=== PATIENT | female | born 1955 | race Hispanic/Latino ===

== ENCOUNTER → 2018-01-05 | Outpatient (CLI) | payer BC ==
[~2018-01-05] MED LIST: AEC81 PO; CHOL100044 PO; ENAL5TAB PO; FISH1CAP49 PO; MULT-1192 PO; PRAV20TA4 PO
== END | disposition home or self-care (01) ==
LOC: RAH 08:34
PROVIDERS: ATTEND Internal Medicine
DX: Z12.31 Encounter for screening mammogram for malignant neoplasm of breast (principal)
CPT/HCPCS: 77067

== ENCOUNTER → 2019-01-07 | Outpatient (CLI) | payer BC | END | disposition home or self-care (01) | LOC: RAH 15:49 | PROVIDERS: ATTEND Internal Medicine | DX: Z12.31 Encounter for screening mammogram for malignant neoplasm of breast (principal) | CPT/HCPCS: 77067 ==

== ENCOUNTER → 2019-04-01 | Outpatient (CLI) | payer BC | END | disposition home or self-care (01) | LOC: RAH 16:01 | PROVIDERS: ATTEND Internal Medicine | DX: M16.11 Unilateral primary osteoarthritis, right hip (principal); M47.816 Spondylosis without myelopathy or radiculopathy, lumbar region | CPT/HCPCS: 73502 ==

== ENCOUNTER → 2020-08-06 | Outpatient (CLI) | payer MEDICARE ==
[~2020-08-06] MED LIST changes: -ENAL5TAB PO; +ENAL5TAB17 PO
== END | disposition home or self-care (01) ==
LOC: RAH 12:54
PROVIDERS: ATTEND Physical Medicine & Rehabilitation
DX: M47.26 Other spondylosis with radiculopathy, lumbar region (principal); M43.16 Spondylolisthesis, lumbar region; M25.562 Pain in left knee
CPT/HCPCS: 72114; 73562

== ENCOUNTER → 2021-01-28 | Outpatient (CLI) | payer MEDICARE | END | disposition home or self-care (01) | LOC: RAH 13:12 | PROVIDERS: ATTEND Physical Medicine & Rehabilitation | DX: M16.11 Unilateral primary osteoarthritis, right hip (principal) | CPT/HCPCS: 73502 ==

== ENCOUNTER → 2021-02-01 | Outpatient (CLI) | payer MEDICARE | END | disposition home or self-care (01) | LOC: RAH 12:36 | PROVIDERS: ATTEND Internal Medicine | DX: Z12.31 Encounter for screening mammogram for malignant neoplasm of breast (principal) | CPT/HCPCS: 77067 ==

== ENCOUNTER 2021-08-13 05:48 | Day surgery (SDC) | payer MEDICARE ==
[2021-08-12 09:34] LABS: BASOPHILS % (AUTO) 0.6 % (0.0-5.0); EOSINOPHILS % (AUTO) 1.3 % (0.0-8.0); HEMATOCRIT 42.8 % (36-48); LYMPHOCYTES % (AUTO) 23.8 % (21.0-51.0); MEAN CORPUSCULAR HEMOGLOBIN 33.6 pg (27.0-33.0); MEAN CORPUSCULAR HGB CONC 33.2 g/dL (32.0-36.0); MEAN CORPUSCULAR VOLUME 101.4 fL (79-99); NEUTROPHILS % (AUTO) 65.1 % (40.0-77.0); PLATELET COUNT (AUTO) 191 K/uL (130-400); RED BLOOD CELL COUNT(AUTO) 4.22 MIL/uL (4.00-5.50); WHITE BLOOD COUNT (AUTO) 8.6 K/uL (4.8-10.8)
[2021-08-12 09:39] LABS: CREATININE 0.9 mg/dL (0.5-1.5)
[2021-08-12 13:07] VITALS: BP 173/88
[~2021-08-13] VITALS: Ht 160 cm; Wt 63.4 kg
[2021-08-13] VITALS (16 sets, daily range): BP systolic 113–152; BP diastolic 54–76
[~2021-08-13 05:48] MED LIST changes: -AEC81 PO; -CHOL100044 PO; -FISH1CAP49 PO; -MULT-1192 PO; -PRAV20TA4 PO; +ROSU5TAB12 PO
[2021-08-13] MEDS ORDERED: FAMOTIDINE 20MG VIAL IV ONE (06:58)
[2021-08-13] MEDS ORDERED: LACTATED RINGERS 1000ML 1,000 ML IV ONE (07:03)
[2021-08-13] MEDS ORDERED: IOPAMIDOL 10 ML VIAL ONE (07:18)
[2021-08-13] MEDS ORDERED: BUPIVACAINE/PF 0.5% 30ML VIAL ONE (07:21)
[2021-08-13] MEDS ORDERED: LIDOCAINE PF 100MG/5ML (2%) SYRINGE 5ML ONE (07:30)
[2021-08-13] MEDS ORDERED: PROPOFOL 10 MG/ML 20ML VIAL IV ONE (07:30)
[2021-08-13] MEDS ORDERED: FENTANYL CITRATE PF 50 MCG/1 ML 2ML VIAL ONE (07:31)
[2021-08-13] MEDS ORDERED: ONDANSETRON 4MG INJ ONE (07:58)
== END 2021-08-13 09:45 | disposition home or self-care (01) ==
LOC: DAH 05:48
PROVIDERS: ATTEND Student in an Organized Health Care Education/Training Program
DX: M16.11 Unilateral primary osteoarthritis, right hip (principal); M75.21 Bicipital tendinitis, right shoulder; M75.41 Impingement syndrome of right shoulder; M75.121 Complete rotator cuff tear or rupture of right shoulder, not specified as traumatic; I10 Essential (primary) hypertension; Z90.710 Acquired absence of both cervix and uterus; Z98.890 Other specified postprocedural states; Z98.51 Tubal ligation status; Z82.49 Family history of ischemic heart disease and other diseases of the circulatory system; Z80.9 Family history of malignant neoplasm, unspecified
CPT/HCPCS: 20610; 36415; 73503; 80048; 85025; 87635; A4215; A4221; A4222; A4223; A4663; C9803; J1030; J2001; J2405; J2704; J3010; J3490 ×2; J7030; J7120; Q9966

== ENCOUNTER 2021-12-17 06:19 | Day surgery (SDC) | payer MEDICARE ==
[2021-12-15 15:06] LABS: BASOPHILS % (AUTO) 0.4 % (0.0-5.0); EOSINOPHILS % (AUTO) 0.8 % (0.0-8.0); HEMATOCRIT 38.2 % (36-48); LYMPHOCYTES % (AUTO) 21.4 % (21.0-51.0); MEAN CORPUSCULAR HEMOGLOBIN 34.7 pg (27.0-33.0); MEAN CORPUSCULAR HGB CONC 34.3 g/dL (32.0-36.0); MEAN CORPUSCULAR VOLUME 101.1 fL (79-99); NEUTROPHILS % (AUTO) 67.9 % (40.0-77.0); PLATELET COUNT (AUTO) 201 K/uL (130-400); RED BLOOD CELL COUNT(AUTO) 3.78 MIL/uL (4.00-5.50); RED CELL DISTRIBUTION WIDTH 12.1 % (11.0-15.5); WHITE BLOOD COUNT (AUTO) 8.3 K/uL (4.8-10.8)
[2021-12-15 15:15] LABS: ALBUMIN 3.9 g/dL (3.5-5.0); CARBON DIOXIDE 31 mmol/L (21-32); CHLORIDE 103 mmol/L (101-111); CREATININE 0.8 mg/dL (0.5-1.5); GLOMERULAR FILTR. RATE CALC 76 mL/min (>60); GLUCOSE,RANDOM 110 mg/dL (70-105); POTASSIUM 3.8 mmol/L (3.5-5.1); SODIUM SERUM 140 mmol/L (136-145); UREA NITROGEN, BLOOD 20 mg/dL (7-18)
[2021-12-15 15:24] LABS: CRP QUANTITATIVE < 2.00 mg/L (0.00-9.0)
[2021-12-16 11:52] VITALS: BP 179/81
[2021-12-17] VITALS (18 sets, daily range): BP systolic 124–166; BP diastolic 55–82
[~2021-12-17] VITALS: Ht 160 cm; Wt 65.0 kg
[~2021-12-17 06:19] MED LIST changes: +EPINEPHRINE PF 1MG (1:1,000) 1 MG/ML AMP ONE
[2021-12-17] MEDS ORDERED: CEFAZOLIN SODIUM 1 GM VIAL ONE (06:32)
[2021-12-17] MEDS ORDERED: LACTATED RINGERS 1000ML 1,000 ML IV ONE (06:32)
[2021-12-17] MEDS ORDERED: EPINEPHRINE PF 1MG (1:1,000) 1 MG/ML AMP ONE (07:49)
[2021-12-17] MEDS ORDERED: SUCCINYLCHOLINE CHLORIDE 20 MG/ML 10 ML VIAL ONE ×2 (08:07→08:08)
[2021-12-17] MEDS ORDERED: LIDOCAINE PF 100MG/5ML (2%) SYRINGE 5ML ONE ×2 (08:07→08:08)
[2021-12-17] MEDS ORDERED: GLYCOPYRROLATE 1 MG/5 ML SYRINGE ONE (08:07)
[2021-12-17] MEDS ORDERED: NEOSTIGMINE 5MG/5ML SYR IV ONE (08:07)
[2021-12-17] MEDS ORDERED: PROPOFOL 10 MG/ML 20ML VIAL IV ONE (08:07)
[2021-12-17] MEDS ORDERED: MIDAZOLAM HCL 1 MG/ML 2ML VIAL ONE (08:07)
[2021-12-17] MEDS ORDERED: ROCURONIUM 10MG/1ML SYR 10 MG/ML ML ONE (08:08)
[2021-12-17] MEDS ORDERED: FENTANYL CITRATE PF 50 MCG/1 ML 2ML VIAL ONE (08:08)
[2021-12-17] MEDS ORDERED: CEFAZOLIN SODIUM 2 GM VIAL IVP ONE (08:30)
[2021-12-17] MEDS ORDERED: PHENYLEPHRINE HCL 10 MG/ML 1ML VIAL IV ONE (08:35)
[2021-12-17] MEDS ORDERED: MEPERIDINE-PF 25 MG/ML SYG ONE (08:58)
[2021-12-17] MEDS ORDERED: EPHEDRINE SULFATE 50 MG/ML AMPULE ONE (09:46)
[2021-12-17] MEDS ORDERED: ROPIVACAINE 0.5% 5MG/ML 30ML IJ ONE (11:08)
[2021-12-17] MEDS ORDERED: HYDR-4060 PO (11:20)
== END 2021-12-17 14:00 | disposition home or self-care (01) ==
LOC: DAH 06:19
PROVIDERS: ATTEND Student in an Organized Health Care Education/Training Program
DX: M75.121 Complete rotator cuff tear or rupture of right shoulder, not specified as traumatic (principal); Z20.822 Contact with and (suspected) exposure to COVID-19; M19.011 Primary osteoarthritis, right shoulder; M75.41 Impingement syndrome of right shoulder; M94.211 Chondromalacia, right shoulder; M75.51 Bursitis of right shoulder; M75.21 Bicipital tendinitis, right shoulder; I10 Essential (primary) hypertension; Z79.899 Other long term (current) drug therapy
CPT/HCPCS: 82040; 80048; 85025; 84134; 86140; 87426; 36415; 93005; 29827; 29824; 29826; A4663; A6207; J7030; A4565; J7120; J3010; J0690 ×2; J3490 ×2; J2710; J0330 ×2; J2001 ×2; J0171 ×2; J2250; J2704; J2175; J2795; J2370; A4930; C1713; A5120; A4215; A4223; A4222; A4221; A4600

== ENCOUNTER → 2022-04-25 | Outpatient (CLI) | payer MEDICARE ==
[~2022-04-25] MED LIST changes: +ENAL-87 PO; -ENAL5TAB17 PO; -EPINEPHRINE PF 1MG (1:1,000) 1 MG/ML AMP ONE; +HYDR-4060 PO
== END | disposition home or self-care (01) ==
LOC: RAH 09:49
PROVIDERS: ATTEND Internal Medicine
DX: Z12.31 Encounter for screening mammogram for malignant neoplasm of breast (principal)
CPT/HCPCS: 77067

== ENCOUNTER → 2022-04-27 | Outpatient (CLI) | payer MEDICARE ==
[2022-04-27 15:12] LABS: CREATININE 0.9 mg/dL (0.5-1.5)
== END | disposition home or self-care (01) ==
LOC: LAB 14:12
PROVIDERS: ATTEND Neurological Surgery
DX: M54.16 Radiculopathy, lumbar region (principal)
CPT/HCPCS: 36415; 82565; 84520

== ENCOUNTER → 2022-04-29 | Outpatient (CLI) | payer MEDICARE ==
[~2022-04-29] MED LIST changes: +GADOTERATE MEGLUMINE 10 MMOL/20 ML VIAL IV ONE
== END | disposition home or self-care (01) ==
LOC: RAH 07:30
PROVIDERS: ATTEND Neurological Surgery
DX: M47.26 Other spondylosis with radiculopathy, lumbar region (principal); M51.16 Intervertebral disc disorders with radiculopathy, lumbar region; Z98.890 Other specified postprocedural states
CPT/HCPCS: 72158; 72100; A9575

== ENCOUNTER → 2022-07-28 | Outpatient (CLI) | payer MEDICARE ==
[~2022-07-28] MED LIST changes: -GADOTERATE MEGLUMINE 10 MMOL/20 ML VIAL IV ONE
== END | disposition home or self-care (01) ==
LOC: RAH 14:12
PROVIDERS: ATTEND Internal Medicine
DX: M25.762 Osteophyte, left knee (principal); M25.562 Pain in left knee
CPT/HCPCS: 73562

== ENCOUNTER → 2023-05-23 | Outpatient (CLI) | payer OTHER | END | disposition home or self-care (01) | LOC: RAH 12:55 | PROVIDERS: ATTEND Internal Medicine | DX: Z12.31 Encounter for screening mammogram for malignant neoplasm of breast (principal) | CPT/HCPCS: 77067 ==

== ENCOUNTER → 2023-08-30 | Outpatient (CLI) | payer OTHER ==
[~2023-08-30] MED LIST changes: -ROSU5TAB12 PO; +ROSU5TAB43 PO
== END | disposition home or self-care (01) ==
LOC: RAH 13:03
PROVIDERS: ATTEND Internal Medicine
DX: M47.812 Spondylosis without myelopathy or radiculopathy, cervical region (principal); M50.222 Other cervical disc displacement at C5-C6 level; M50.21 Other cervical disc displacement, high cervical region; M50.223 Other cervical disc displacement at C6-C7 level
CPT/HCPCS: 72141

== ENCOUNTER → 2024-05-24 | Outpatient (CLI) | payer OTHER ==
[~2024-05-24] MED LIST changes: -ROSU5TAB43 PO; +ROSU5TAB51 PO
== END | disposition home or self-care (01) ==
LOC: RAH 13:33
PROVIDERS: ATTEND Family Medicine
DX: Z12.31 Encounter for screening mammogram for malignant neoplasm of breast (principal)
CPT/HCPCS: 77067